=== PATIENT | female | born 1990 | race Caucasian/White ===

== ENCOUNTER 2024-01-16 13:10 | Outpatient (CLI) | payer BC ==
[2024-01-16 18:14] LABS: THYROID STIMULATING HORMONE 8.52 uIU/mL (0.34-5.60)
== END 2024-01-16 13:11 | disposition home or self-care (01) ==
LOC: LAB.N 13:10
PROVIDERS: ATTEND Internal Medicine Endocrinology, Diabetes & Metabolism
DX: E03.1 Congenital hypothyroidism without goiter (principal)
CPT/HCPCS: 36415; 84439; 84443

== ENCOUNTER 2024-02-29 13:11 | Outpatient (CLI) | payer BC ==
[2024-02-29 18:31] LABS: THYROID STIMULATING HORMONE 2.09 uIU/mL (0.34-5.60)
== END 2024-02-29 13:12 | disposition home or self-care (01) ==
LOC: LAB.N 13:11
PROVIDERS: ATTEND Internal Medicine Endocrinology, Diabetes & Metabolism
DX: E03.1 Congenital hypothyroidism without goiter (principal)
CPT/HCPCS: 36415; 84439; 84443